=== PATIENT | female | born 1960 | race Caucasian/White ===

== ENCOUNTER 2017-02-27 20:03 | Emergency (ER) | payer OTHER ==
[2017-02-27 20:13] VITALS: BP 154/94; PULSE 78; TEMP 98.2; BMI 32.1
--- NOTE | 2017-02-27 20:57 | PDOC ---
History of Present Illness - General Chief Complaint: Rash Stated Complaint: RASH Time Seen by Provider: 02/27/17 20:29 History Source: Patient - History of Present Illness Timing/Duration: reports: other (2 weeks ago) Location: reports: face Past History - Past Medical History Allergies/Adverse Reactions: Allergies Allergy/AdvReac Type Severity Reaction Status Date / Time No Known Drug Allergies Allergy Verified 02/27/17 20:13 Home Medications: Ambulatory Orders Ibuprofen [Motrin -] 600 mg PO QID #28 tablet 04/13/16 Lisinopril/Hydrochlorothiazide [Lisinopril-Hctz 10-12.5 mg Tab] 1 each PO DAILY 04/13/16 GI Disorders: Yes (ulcer) HTN: Yes - Surgical History Cholecystectomy: Yes - Suicide/Smoking/Psychosocial Hx Smoking Status: No Smoking History: Never smoked Have you smoked in the past 12 months: No Number of Cigarettes Smoked Daily: 0 Hx Alcohol Use: No Drug/Substance Use Hx: No Substance Use Type: None Hx Substance Use Treatment: No Review of Systems - Review of Systems Constitutional: No: Chills, Fever Integumentary: Yes: Pruritus, Rash *Physical Exam - Vital Signs Last Vital Signs Temp Pulse Resp BP Pulse Ox 98.2 F 78 18 154/94 99 02/27/17 20:10 02/27/17 20:10 02/27/17 20:10 02/27/17 20:10 02/27/17 20:10 - Physical Exam General Appearance: Yes: Appropriately Dressed. No: Apparent Distress HEENT: positive: Normal Voice Neck: positive: Supple Respiratory/Chest: negative: Respiratory Distress Integumentary: positive: Dry, Warm, Other (~6x2 cm erythematous patch w/ overlying scales to forehead of unclear etiology, no blisters, no ttp or increased warmth) Medical Decision Making - Medical Decision Making 02/27/17 20:57 56 yo F, no sig hx, here with pruritic rash to forehead x 2 weeks. No inciting factors. No h/o similar rash see exam Non-specific dermatitis to face No e/o infection or other serious condition at this time -Will dc w/ derm f/u 02/27/17 21:01 *DC/Admit/Observation/Transfer Diagnosis at time of Disposition: Rash and nonspecific skin eruption - Discharge Dispostion Disposition: HOME Condition at time of disposition: Good - Referrals Referrals: Greg Omalley MD [Primary Care Provider] - Anabela Lemon MD [Staff Physician] - - Patient Instructions Printed Discharge Instructions: DI for Rash Additional Instructions: Please follow up with dermatology for further evaluation
== END 2017-02-27 21:07 | disposition home or self-care (01) ==
LOC: JERFT 20:03
DX: R21 Rash and other nonspecific skin eruption (principal)
CPT/HCPCS: 99281-25

== ENCOUNTER 2019-05-27 08:44 | Day surgery (SDC) | payer OTHER ==
[2019-05-27 09:02] VITALS: BMI 34.0
[2019-05-27] MEDS ORDERED: IBUPROFEN 400 MG TABLET (FP) PO PRN (11:19)
[2019-05-27] MEDS ORDERED: ACETAMINOPHEN 325 MG TABLET (FP) PO PRN (11:19)
--- NOTE | 2019-05-27 11:19 | HP ---
History & Physical Update - History History: No Change - Physical Physical: No Change - Assessment Assessment: No Change - Plan Plan: No Change (No change in HP)
[2019-05-27] MEDS ORDERED: oxyCODONE HCL 5 MG TABLET PO PRN (11:20)
[2019-05-27] MEDS ORDERED: ONDANSETRON 4 MG/2 ML VIAL IVPUSH PRN (11:20)
--- NOTE | 2019-05-27 11:28 | OP ---
Operative Note - Note: Operative Date: 05/27/19 Pre-Operative Diagnosis: endometrial hyperplasia Operation: Hysteroscopic Myomectomy. Suction DC Post-Operative Diagnosis: Other (Submucosa myoma) Surgeon: Rema Ortega Anesthesia: General Estimated Blood Loss (mls): 30 Operative Report Dictated: Yes
[2019-05-27] MEDS ORDERED: LACTATED RINGERS SOLUTION 1,000 ML IV SCH (11:30)
[2019-05-27] MEDS ORDERED: PROPOFOL 20 ML ONE (11:37)
[2019-05-27] MEDS ORDERED: MIDAZOLAM HCL 2 MG/2 ML SINGLE DOSE VIAL ONE (11:38)
[2019-05-27 14:13] VITALS: TEMP 98.2
[2019-05-27 15:24] VITALS: BP 114/80; PULSE 90
--- NOTE | 2019-05-27 18:30 | OP ---
DATE OF OPERATION: 05/27/2019 PREOPERATIVE DIAGNOSIS: Endometrial hyperplasia. OPERATION: Hysteroscopic myomectomy, suction dilation and curettage. POSTOPERATIVE DIAGNOSIS: Submucosal myoma. SURGEON: Rema Ortega MD ANESTHESIA: General. ESTIMATED BLOOD LOSS: 30 mL. PROCEDURE: Patient was taken to the operating room, placed in dorsal lithotomy position, prepped and draped in the usual sterile fashion. Speculum was placed in the vagina. Anterior lip of the cervix was grasped with a single-tooth tenaculum. Cervix was then dilated to accommodate the operative hysteroscope. A large submucosal myoma was seen. Cautery and cutting of the myoma. Myoma was twisted off and tried to be removed. Suction dilation and curettage was done. Repeat procedures were noted. A type 0 submucosal myoma as well as a type 1 submucosal myoma was seen, and cautery and cutting of the submucosal myomas was done. A large amount of specimen was submitted to Pathology. Hemostasis was achieved. Estimated blood loss 30 mL. REMA ORTEGA M.D. [id number]
--- NOTE | 2019-05-29 17:30 | PATH ---
Surgical Pathology Report Patient Name: MORALES BELCHER [facility]. Rec. #: [id number] /Age/Gender: 1960 (Age: 58) / F Account: [id number] Location: [facility] [place] SURGICAL Taken: 05/27/2019 Received: 05/27/2019 Reported: 05/29/2019 Physicians: Rema Ortega M.D. Specimen(s) Received A: ENDOMETRIAL CURETTINGS B: UTERINE FIBROIDS Clinical History Endometrial hyperplasia, acute vaginitis Final Diagnosis A. CURETTINGS, DILATION AND CURETTAGE: FRAGMENTS OF ENDOMETRIAL POLYP, PROLIFERATIVE ENDOMETRIUM, SMOOTH MUSCLE, AND BENIGN CERVICAL TISSUE. B. "UTERINE FIBROIDS", HYSTEROSCOPIC MYOMECTOMY: FRAGMENTS OF ENDOMETRIAL POLYP. Electronically Signed Komal Fernandez M.D. Gross Description A. Received in formalin labeled "endometrial curettings," is a 4.0 x 2.7 x 0.3 cm aggregate of celestin red soft tissue fragments. The formalin is filtered and the specimen is entirely submitted in 2 cassettes. B. Received in formalin labeled "uterine fibroids," is an 8 g, 6.0 x 4.5 x 0.4 cm aggregate of celestin-pink portions of soft tissue. The specimen is entirely submitted in 5 cassettes. /05/27/201905/27/2019
== END 2019-05-27 15:26 | disposition home or self-care (01) ==
LOC: JASU-SURG 08:44
PROVIDERS: ATTEND Obstetrics & Gynecology
PROC: 0UB98ZZ Excision of Uterus, Via Natural or Artificial Opening Endoscopic (ICD-10-PCS; principal; 2019-05-27 11:00)
DX: N85.00 Endometrial hyperplasia, unspecified (principal); D25.0 Submucous leiomyoma of uterus
CPT/HCPCS: 88305-TC; 94760

== ENCOUNTER 2020-08-02 16:30 | Emergency (ER) | payer OTHER ==
[2020-08-02 16:43] VITALS: TEMP 98.6; BMI 34.9
[2020-08-02] MEDS ORDERED: SODIUM CHLORIDE 0.9% 500 ML INFUS.BAG IV ONE (17:14)
[2020-08-02] MEDS ORDERED: ACETAMINOPHEN 325 MG TABLET (FP) PO ONE (17:14)
[2020-08-02] MEDS ORDERED: ONDANSETRON 4 MG/2 ML VIAL IVPUSH ONE (17:14)
[2020-08-02] MEDS ORDERED: ONDANSETRON 4 MG/2 ML VIAL ONE (17:43)
[2020-08-02] MEDS ORDERED: ACETAMINOPHEN 325 MG TABLET (FP) ONE (17:43)
[2020-08-02 17:53] LABS: BASO % 1.4 % (0-2.0); EOS % 1.2 % (0-4.5); LYMPH % 30.9 % (8-40); MCH 31.1 pg (25.7-33.7); MEAN CELL VOLUME 91.3 fl (80-96); MONO % 20.1 % (3.8-10.2); NEUT % 46.4 % (42.8-82.8); PLATELET COUNT 262 K/MM3 (134-434); RBC 4.82 M/mm3 (3.60-5.2); RDW 13.8 % (11.6-15.6); WHITE BLOOD COUNT 4.8 K/mm3 (4.0-10.0)
[2020-08-02 18:07] LABS: INR 1.04 (0.83-1.09); PROTHROMBIN TIME (PATIENT) 12.6 SEC (9.7-13.0)
[2020-08-02 18:20] LABS: CHLORIDE 105 mmol/L (98-107); POTASSIUM 4.5 mmol/L (3.5-5.1); SODIUM 138 mmol/L (136-145)
[2020-08-02 18:24] LABS: ALBUMIN 3.7 g/dl (3.4-5.0); ANION GAP 5 MMOL/L (8-16); BLOOD UREA NITROGEN 13.5 mg/dL (7-18); CO2 29 mmol/L (21-32); GLUCOSE,RANDOM 88 mg/dL (74-106); LIPASE 156 U/L (73-393); MAGNESIUM 2.1 mg/dL (1.8-2.4)
[2020-08-02 18:26] LABS: CREATININE 0.8 mg/dL (0.55-1.3); SGOT/AST 137 U/L (15-37); SGPT/ALT 148 U/L (13-61)
[2020-08-02 18:29] LABS: BILIRUBIN,TOTAL 0.3 mg/dL (0.2-1); TOT PROT 8.5 g/dl (6.4-8.2)
[2020-08-02 18:30] LABS: ALK PHOS 93 U/L (45-117)
[2020-08-02 18:40] LABS: ANISOCYTOSIS 0; MACROCYTOSIS 0; PLATELET ESTIMATE NORMAL
[2020-08-02 19:59] LABS: LDH 270 U/L (84-246)
[2020-08-02 21:15] VITALS: BP 128/89; PULSE 82
[2020-08-02 22:04] LABS: URINE APPEARANCE CLEAR; URINE BILIRUBIN NEGATIVE (NEGATIVE); URINE COLOR YELLOW; URINE GLUCOSE (UA) NEGATIVE (NEGATIVE); URINE KETONE NEGATIVE (NEGATIVE)
[2020-08-02 22:05] LABS: URINE LEUK ESTERASE NEGATIVE (NEGATIVE); URINE NITRITE NEGATIVE (NEGATIVE); URINE PROTEIN NEGATIVE (NEGATIVE); URINE UROBILINOGEN 0.2 mg/dL (0.2-1.0)
== END 2020-08-02 22:41 | disposition home or self-care (01) ==
LOC: JER 16:30
PROC: 3E033GC Introduction of Other Therapeutic Substance into Peripheral Vein, Percutaneous Approach (ICD-10-PCS; principal; 2020-08-02)
DX: R10.9 Unspecified abdominal pain (principal); R00.0 Tachycardia, unspecified; N20.0 Calculus of kidney
CPT/HCPCS: 36415; 74177-TC; 80053; 81003; 82550; 82728; 83615; 83690; 83735; 84443; 84484; 85025; 85610; 86140; 93005; 93010; 99285-25; C9803; Q9967; U0003